=== PATIENT | male | born 1995 | race Caucasian/White ===

== ENCOUNTER 2020-10-22 00:59 | Emergency (ER) | payer OTHER ==
[2020-10-22] MEDS ORDERED: Rabies Vaccine Human 2.5 UNITS VIAL IM ONE (02:00)
== END 2020-10-22 04:49 | disposition home or self-care (01) ==
LOC: ERS 00:59
DX: S61.210A Laceration without foreign body of right index finger without damage to nail, initial encounter (principal); W55.59XA Other contact with raccoon, initial encounter
CPT/HCPCS: 90376; 90471; 90675; 96372

== ENCOUNTER → 2020-10-25 | Day surgery (SDC) | payer OTHER ==
[~2020-10-25] MED LIST: Rabies Vaccine Human 2.5 UNITS VIAL IM ONE
== END ==
LOC: ER/OP 11:01
DX: Z23 Encounter for immunization (principal)
CPT/HCPCS: 90471; 90675

== ENCOUNTER 2020-10-29 12:11 | Emergency (ER) | payer OTHER ==
[2020-10-29] MEDS ORDERED: Rabies Vaccine Human 2.5 UNITS VIAL IM ONE (13:00)
== END 2020-10-29 13:35 ==
LOC: ERS 12:11 → ER/OP 12:11 → ERS 13:35
DX: Z23 Encounter for immunization (principal)
CPT/HCPCS: 90471; 90675

== ENCOUNTER → 2020-11-05 | Day surgery (SDC) | payer OTHER | LOC: ER/OP 14:14 | DX: Z23 Encounter for immunization (principal) | CPT/HCPCS: 90471; 90675 ==

== ENCOUNTER → 2020-11-19 | Day surgery (SDC) | payer OTHER | LOC: ER/OP 16:04 | DX: Z23 Encounter for immunization (principal) | CPT/HCPCS: 90471; 90675 ==